=== PATIENT | female | born 2000 | race Caucasian/White ===

== ENCOUNTER 2018-07-19 13:36 | Emergency (ER) | payer OTHER ==
[2018-07-19 13:44] VITALS: BP 104/62
--- NOTE | 2018-07-19 13:49 | UC ---
Throat Pain/Nasal William HPI - HPI Summary HPI Summary: [address], PAIN WITH SWALLOWING. NO FEVER, NAUSEA, COUGH, CONGESTION OR EAR PAIN. - History of Current Complaint Chief Complaint: UCGeneralIllness Stated Complaint: SORE THROAT Time Seen by Provider: 07/19/18 13:48 Hx Obtained From: Patient Hx Last Menstrual Period: 07/02/18 Onset/Duration: Gradual Onset, Lasting Days, Still Present Severity: Moderate Pain Intensity: 7 Pain Scale Used: 0-10 Numeric Cough: None Associated Signs & Symptoms: Positive: Negative - Allergies/Home Medications Allergies/Adverse Reactions: Allergies Allergy/AdvReac Type Severity Reaction Status Date / Time No Known Allergies Allergy Verified 07/19/18 13:44 PMH/Surg Hx/FS Hx/Imm Hx Psychological History: Anxiety, Depression - Surgical History Surgical History: Yes Surgery Procedure, Year, and Place: APPENDECTOMY (05/2008) - Family History Known Family History: Positive: Non-Contributory - Social History Alcohol Use: Rare Substance Use Type: None Smoking Status (MU): Former Smoker - Immunization History Most Recent Influenza Vaccination: unknown Most Recent Pneumonia Vaccination: never Vaccination Up to Date: No Review of Systems All Other Systems Reviewed And Are Negative: Yes Constitutional: Positive: Negative ENT: Positive: Sore Throat Respiratory: Positive: Negative Cardiovascular: Positive: Negative Gastrointestinal: Positive: Negative Physical Exam Triage Information Reviewed: Yes Appearance: Well-Appearing, No Pain Distress, Well-Nourished Vital Signs: Initial Vital Signs Temp 98.3 F 07/19/18 13:41 Pulse 41 07/19/18 13:41 Resp 16 07/19/18 13:41 BP 104/62 07/19/18 13:41 Pulse Ox 100 07/19/18 13:41 Laboratory Tests 07/19/18 13:49 Group A Strep Rapid Negative Vital Signs Reviewed: Yes Eyes: Positive: Conjunctiva Clear ENT: Positive: Hearing grossly normal, TMs normal, Tonsillar swelling - MILD LEFT, Tonsillar exudate - LEFT. Negative: Pharyngeal erythema Neck: Positive: Supple, Tenderness @ - LEFT SPFL CERVICAL LAD, Enlarged Nodes @ - BILATERAL SPFL CERVICAL LAD Respiratory Exam: Normal Cardiovascular Exam: Normal Abdomen Description: Positive: Nontender, Soft Musculoskeletal: Positive: No Edema Neurological: Positive: Alert Psychological: Positive: Age Appropriate Behavior Skin: Negative: Rashes Throat Pain/Nasal Course/Dx - Course Course Of Treatment: RAPID STREP NEGATIVE. SYMPTOMS LIKELY VIRALLY MEDIATED. ENCOURAGED FLUIDS. MAGIC MOUTHWASH AND OTC MEDICATIONS NEEDED FOR DISCOMFORT. PREDNISONE TO HELP WITH INFLAMMATION. FOLLOW-UP IF NOT IMPROVING EXPECTED OVER THE NEXT WEEK OR SO. - Differential Dx/Diagnosis Provider Diagnosis: Acute tonsillitis Discharge - Sign-Out/Discharge Documenting (check all that apply): Patient Departure All imaging exams completed and their final reports reviewed: No Studies - Discharge Plan Condition: Stable Disposition: HOME Prescriptions: Magic Mouth Was-GINETTE/MAAL/LIDO* 5 - 10 ml SWISH SWAL QID PRN #150 ml PRN Reason: Sore Throat predniSONE TAB* [Deltasone TAB*] 50 mg PO DAILY #5 tab Patient Education Materials: Tonsillitis (ED) Referrals: Adrienne Garcia MD [Medical Doctor] - If Needed Additional Instructions: STREP TEST NEGATIVE. YOUR SYMPTOMS ARE LIKELY VIRALLY MEDIATED AND SHOULD RESOLVE ON THEIR OWN WITH TIME. NO INDICATION FOR ANTIBIOTICS AT PRESENT. REST, HYDRATE, OTC MEDS NEEDED. WILL TREAT WITH PREDNISONE TO HELP WITH INFLAMMATION. SEEK FOLLOW-UP IF YOU ARE NOT IMPROVING OVER THE NEXT 1-2 WEEKS. OTC CHLORASEPTIC OR CEPACOL LOZENGES AND/OR IBUPROFEN FOR SORE THROAT NEEDED MAGIC MOUTHWASH ALSO PRESCRIBED. ONCE SYMPTOMS RESOLVED - NEW TOOTHBRUSH DO NOT SHARE FOOD, DRINK, UTENSILS - Billing Disposition and Condition Condition: STABLE Disposition: Home
== END 2018-07-19 14:14 | disposition home or self-care (01) ==
LOC: UCEAST 13:36
DX: J03.90 Acute tonsillitis, unspecified (principal); Z87.891 Personal history of nicotine dependence
CPT/HCPCS: 87651; 99212; G0463